=== PATIENT | female | born 1990 | race Caucasian/White ===

== ENCOUNTER → 2016-09-08 | Outpatient (REF) | payer OTHER ==
[~2016-09-08] MED LIST: ABIL2TAB OR; DEPA250T3 OR; TRAZ50TA OR; ZOLO50TA OR
== END | disposition home or self-care (01) ==
LOC: M SFHCWAGY 15:22
PROVIDERS: ATTEND Nurse Practitioner Family
DX: Z12.4 Encounter for screening for malignant neoplasm of cervix (principal); Z11.3 Encounter for screening for infections with a predominantly sexual mode of transmission
CPT/HCPCS: 87491; 87591; G0123

== ENCOUNTER 2016-12-13 16:23 | Inpatient (IN) | payer OTHER ==
[~2016-12-13] VITALS: Ht 162.6 cm; Wt 57.7 kg
[2016-12-13 17:24] LABS: MEAN CORPUSCULAR HEMOGLOBIN 29.6 pg (27.0-33.0); MEAN CORPUSCULAR HGB CONC 34.5 g/dl (32.0-36.5); MEAN CORPUSCULAR VOLUME 85.8 fl (80.0-96.0); RED CELL DISTRIBUTION WIDTH 11.9 % (11.5-14.5); WHITE BLOOD COUNT 5.5 K/mm3 (4.0-10.0)
[2016-12-13 17:38] LABS: CONTROL LINE HCG INT CTR LINE PRESENT
[2016-12-13 17:53] LABS: ALBUMIN/GLOBULIN RATIO 1.25 (1.00-1.93); ALKALINE PHOSPHATASE 77 U/L (45-117); ALT/SGPT 23 U/L (12-78); ANION GAP 6 MEQ/L (8-16); AST/SGOT 17 U/L (15-37); BILIRUBIN,DIRECT 0.2 MG/DL (0.0-0.2); BILIRUBIN,TOTAL 0.5 MG/DL (0.2-1.0); BLOOD UREA NITROGEN 11 MG/DL (7-18); CALCIUM LEVEL 8.9 MG/DL (8.5-10.1); CARBON DIOXIDE LEVEL 29 MEQ/L (21-32); CHLORIDE LEVEL 104 MEQ/L (98-107); CREATININE FOR GFR 0.85 MG/DL (0.55-1.02); GLOMERULAR FILTRATION RATE > 60.0 (>60); GLUCOSE, FASTING 92 MG/DL (70-105); POTASSIUM SERUM 4.1 MEQ/L (3.5-5.1); SODIUM LEVEL 139 MEQ/L (136-145); TOTAL PROTEIN 7.2 GM/DL (6.4-8.2)
[2016-12-13 18:10] LABS: METHADONE URINE NEGATIVE (NEGATIVE)
[2016-12-13] MEDS ORDERED: MAALOX 30 ML SUSP *UDC PO PRN (19:00)
[2016-12-13] MEDS ORDERED: MOM 30ML SUSPENSION UDC PO PRN (19:00)
[2016-12-13] MEDS ORDERED: NICOTINE 21MG/24HR 1 EA TRANSDERMAL TD ONE (20:00)
[2016-12-13 21:15] VITALS: BP 116/77
[2016-12-13] MEDS: cloNIDine 0.05MG PER 1/2 TABLET PO SCH (22:49)
[2016-12-13] MEDS: ACETAMINOPHEN TAB 650MG DOSE (2X325MG) PO PRN (22:51)
[2016-12-14] MEDS: traZODone 50 MG TAB PO PRN (00:03)
[2016-12-14 06:24] VITALS: BP 100/54
[2016-12-14] MEDS: ACETAMINOPHEN TAB 650MG DOSE (2X325MG) PO PRN ×2 (08:35→20:15)
[2016-12-14] MEDS: cloNIDine 0.05MG PER 1/2 TABLET PO SCH ×4 (09:00→20:14)
[2016-12-14] MEDS: chlordiazePOXIDE 25 MG CAP PO SCH ×3 (10:06→20:15)
--- NOTE | 2016-12-14 10:08 | HPEPDOC ---
[facility] History & Physical History and Physical DATE OF ADMISSION: Dec 13, 2016 at 18:33 LEGAL STATUS AT ADMISSION: 9.39 status CHIEF COMPLAINT: "I lied to the police. I lied to everyone. I want to be discharged. Is there anyway I can leave tomorrow. My mother needs me". HISTORY OF THE PRESENT ILLNESS: Patient is a 25-year-old female, who is being treated for opiate withdrawal and substance induced mood disorder. PSYCHIATRIC REVIEW OF SYSTEMS: Affective: irritable, sleepy Anxiety: high Trauma: denies Psychosis: denies Personally: easily redirected PAST PSYCHIATRIC HISTORY: Prior Psychiatric Disorder: opiate dependence, substance induced mood disorder Outpatient Treatment: pt has been to detox twice in [place] and rehab at [facility] in 2010, remained sober/clean for 2 years Suicidal/Self injurious: has cut and burned herself in the past, last at age 14. Psychotropic Medication History: zoloft 50 mg according to her chart by Dr. Kennedy. ALLERGIES: Please see below. FAMILY PSYCHIATRIC HISTORY: Mother used crack cocaine, may have mental illness but unknown SOCIAL HISTORY: Early Relations/development: raised by father, mother was a drug addict Sibling order: only child Paternal relationships: lives with mother, claims good relationship with both parents, parents when she was 3 yo. Education: HS graduate, earned Advanced regents diploma at [employer]. Average grades - in the 80 percentile. 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 Legal: denies Martial: single, in a relationship x 4 years with same man Economic: depends on mother or Boyfriend Supports: boyfriend Abuse/trauma: denies SUBSTANCE ABUSE HISTORY: Yolis began using marijuana at age 17. She moved on to LSD, crack cocaine and snorting heroine. She has currently been injecting heroine using 6 bags a day. She states she last used 1.5 days ago. She has detoxed herself in the past by using Suboxone she obtained from a friend. PAST MEDICAL/SURGICAL HISTORY: 1. vaginal infections 2. diabetes? 3. h/o elevated BP-HTN 4. nicotine dependence VITAL SIGNS: Temperature 98.7, pulse 70 respiratory rate 16, blood pressure 100/ 54. MENTAL STATUS EXAMINATION: General appearance: Patient is a 25-year old female, who is on withdrawal precautions due to opiate dependence. In bed, disshelved. Speech: regular rate, rhythm, good tone Thought processes: logical and goal directed Thought content:wants to be discharged after learning she is not able to get suboxone or methadone here. Abstract reasoning and computation: good Description of associations: good Description of abnormal or psychotic thoughts: denies psychotic symptoms, not manic or hypomanic, denies SI Judgment:poor Insight: good Orientation: oriented x 3 Recent and remote memory: grossly intact Attention span and concentration: adequate. Fund of knowledge: full Mood: "anxious" Affect:irritable, tearful. DIAGNOSES: 1. Sedative, hypnotic, opiate dependence 2. Mood disorder - substance induced 3. Depressive disorder 4. ADD 5. Panic disorder ASSESSMENT: Pt is in need of safe environment with supervision. Pt needs monitoring for opiate withdrawal and medications to support safe withdrawal. Pt is agreeable to outpatient substance abuse treatment. She says her boyfriend does not like her using heroine. She says he works as a milk delivery driver and all of his sisters have college degrees. This makes her feel inferior. She would like to get a job while in outpatient treatment. She states she attended 12 step meetings in the past and worked with a sponsor. She states she was stressing about getting a job and self-esteem was low and this caused her to relapse. 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 Pt states she has dyslexia along with ADD. She states her parents did not belive in [facility] when she was dx in grade school. She says she was held back in the second grade. She states she was teased and called "a ditz" while growing up. Pt reports time management, excessive tardiness and inability to reach deadlines have caused her to be fired from numerous jobs. She may be a candidate for [facility] if she follows through with outpatient treatment. Pt reports feeling panicked when in crowds. She experiences SOB and elevated heart rate. Her last panic attack was 6 weeks ago. Toxicology + for opiates. Liver enzymes wnl. Bilirubin trending up since admission. States she has been screened for Hep C in the past and is negative. New specimen obtained today. Also test pending for HIV. Hates blood draws. Protocol in place for withdrawal from opiates. Using Librium 25 mg, 3 doses today, 2 tomorrow and 1 the following day. She is cooperative to VS. CXR done this morning - awaiting results. EKG results pending Pt states her mother was recently treated for breast cancer. She required surgery and chemo. States her mother wants her and needs her at home. Case discussed with sr. merchandise planner who will speak with pt and investigate [facility] addiction services as an outpatient program for Ms. Felix. Since she would like suboxone she will be referred to Dr. Carl. Will start celexa for depression. PROBLEM LIST: 1. substance abuse 2. poor coping skills 3. lack of emotional support INITIAL TREATMENT PLAN: 1. Patient was admitted on a 9.39 2. Complete history was obtained. 3. With patients permission, family will be contacted and database will be expanded. 4. Patients medication regimen will be reviewed and changed accordingly. 5. Patient will be provided with protected environment. 6. Patient will be treated with individual, group, and milieu therapies. 7. Patient will receive supportive psych-education. 8. Discharge planning will commence immediately. 9. Outpatient follow-up treatment will be strongly recommended. 10. The initial treatment plan will focus initially on: * Depression. * Risk for suicide. * Substance abuse. ESTIMATED LENGTH OF STAY: 5-7 DAYS. TIME SPENT COUNSELING AND COORDINATING INITIAL CARE: 60 minutes. Laboratory Data 24H Labs Laboratory Tests 2 12/13/16 17:05: Acetaminophen Level < 2.0L, Aspartate Amino Transf (AST/SGOT) 17, Alanine Aminotransferase (ALT/SGPT) 23, Alkaline Phosphatase 77, Total Bilirubin 0.5, Direct Bilirubin 0.2, Albumin 4.0, Albumin/Globulin Ratio 1.25, Anion Gap 6L, Calcium Level 8.9, Ethyl Alcohol Level < 0.003, Glomerular Filtration Rate > 60.0, Human Chorionic Gonadotropin, Qual NEGATIVE, Salicylates Level < 1.7L, Thyroid Stimulating Hormone (TSH) 1.400, Total Protein 7.2 CBC/BMP Laboratory Tests 12/13/16 17:05 Red Blood Count 4.65, Mean Corpuscular Volume 85.8, Mean Corpuscular Hemoglobin 29.6, Mean Corpuscular Hemoglobin Concent 34.5, Red Cell Distribution Width 11.9 Medications No Active Prescriptions or Reported Meds Allergies Coded Allergies: No Known Drug Allergy (Unverified Allergy, Unknown, 11/29/12) Tita Esparza Dec 14, 2016 10:08
--- NOTE | 2016-12-14 10:15 | HPEPDOC ---
Medical History and Physical Date of Admission Dec 13, 2016 at 18:33 History and Physical PCP: None ATTENDING: Dr. Robby Anthony HPI: 25yoF admitted to [facility] for depression, being medically examined today. Patient is reluctant to participate with exam, states she has no acute medical complaints today. She is wrapped in a blanket as she is experiencing withdrawal symptoms. She is experiencing some chills, fatigue, generalized malaise. Nursing reports fever of 101.3, the patient received Tylenol with a recheck of 100.0. Denies any RO, CP, SOB, cough, palpitations, abdominal pain, N/V/D or changes in bowel or bladder habits. PMHx: Substance use Tobacco use Anxiety Depression Insomnia H/O self mutilation PSHX: Denies SOCHX: Resides in: [facility] Marital Status: Single Kids: None Employment: Unemployed Tobacco use: One pack per day ETOH: Denies Illicit Drugs: 6 bags of heroin per day IV Drug Use: Heroin Tattoos done unprofessionally: Denies FAMHX: Mother: Alive, history of breast cancer Father: Alive, well Siblings: None Children: None Unexpected deaths due to medical reasons: None. ROS: As noted in HPI, otherwise 11pt ROS of systems reviewed and remarkable only for LMP unknown. PE: GEN: 25 yo F, appears stated age. Alert and oriented x 3. Avoids eye contact. Lethargic. HEENT: Normocephalic, atraumatic. Pupils are equal, round, and reactive to light. Extraocular movements are intact. No nystagmus appreciated. Sclera are nonicteric. Conjunctiva without injection. Nose midline. Nasal turbinates without bogginess. EACs both patent BL. TMs both visualized and cochran with good cone of light, no bulging or erythema. No facial asymmetry. Moist mucous membranes. Dentition fair. Pharynx pink and moist, no cobblestoning. Neck supple , trachea midline. No lymphadenopathy or thyromegaly appreciated. CHEST: Regular rate and rhythm, +S1, +S2 LUNGS: Clear to auscultation bilaterally. No wheezes, rales, or rhonchi. Breathing appears symmetric and easy. Patient is speaking in full sentences. No accessory muscle use. ABD: Round, soft, non-tender, non-distended. +Bowel sounds throughout. No rebound or guarding. No costovertebral angle tenderness. EXT: Pulses 2+ bilaterally dorsalis pedis and radial. No lower extremity edema appreciated. SKIN: [place], dry, warm. Capillary refill <2sec. Multiple injection sites are noted at the right forearm and antecubital area. NEURO: Alert and oriented x 3. Cranial nerves III-XII are intact. No focal deficits appreciated. EKG: Pending. A&P: 25yoF admitted to [facility] for depression 1. Psych. Plan per Psychiatry. Obtain baseline EKG to assure the safety of psychiatric medications as they can prolong the QT interval. 2. Nicotine dependence. Patch available. 3. Fever. Continue Tylenol 650 mg every 4 hours as needed. Update CBC with differential/CMP. Check UA/urine culture. Blood Culture 2. Chest x-ray. 4. Follow up. No Primary Care Provider. Will attempt to establish PCP on discharge. 5. Substance use. Withdrawal per psychiatry. 6. History of IVDU. Patient agrees to HIV and hepatitis screening. 7. Staff member Katarina OSWALD present throughout exam. Vital Signs Vital Signs Date Time Temp Pulse Resp B/P Pulse Ox O2 Delivery O2 Flow Rate FiO2 12/14/16 09:00 103/55 12/14/16 06:24 98.7 70 16 12/13/16 21:15 100 Room Air Laboratory Data Labs 24H Laboratory Tests 2 12/13/16 17:05: Acetaminophen Level < 2.0L, Aspartate Amino Transf (AST/SGOT) 17, Alanine Aminotransferase (ALT/SGPT) 23, Alkaline Phosphatase 77, Total Bilirubin 0.5, Direct Bilirubin 0.2, Albumin 4.0, Albumin/Globulin Ratio 1.25, Anion Gap 6L, Calcium Level 8.9, Ethyl Alcohol Level < 0.003, Glomerular Filtration Rate > 60.0, Human Chorionic Gonadotropin, Qual NEGATIVE, Salicylates Level < 1.7L, Thyroid Stimulating Hormone (TSH) 1.400, Total Protein 7.2 CBC/BMP Laboratory Tests 12/13/16 17:05 Red Blood Count 4.65, Mean Corpuscular Volume 85.8, Mean Corpuscular Hemoglobin 29.6, Mean Corpuscular Hemoglobin Concent 34.5, Red Cell Distribution Width 11.9 Home Medications No Active Prescriptions or Reported Meds Allergies Coded Allergies: No Known Drug Allergy (Unverified Allergy, Unknown, 11/29/12) Marline Gamble Dec 14, 2016 10:15
--- NOTE | 2016-12-14 11:19 | REP ---
Chest x-ray: Two views. History: Fever. Comparison study: No comparison . Findings: The lungs are well inflated and free of infiltrate. The pleural angles are sharp. The heart size is normal. Pulmonary vasculature is not increased. No significant bony abnormality is seen. Impression: Negative chest x-ray. Signed by Heladio Fernandes MD 12/14/2016 11:11 A
[2016-12-14 12:59] LABS: BASO % 0.5 % (0.0-1.0); EOS % 0.6 % (0.0-3.0); LARGE UNSTAINED CELL # 0.1 K/mm3 (0.0-0.4); LARGE UNSTAINED CELL % 2.1 % (0.0-4.0); LYMPH % 20.6 % (24.0-44.0); MEAN CORPUSCULAR HEMOGLOBIN 29.3 pg (27.0-33.0); MEAN CORPUSCULAR HGB CONC 34.1 g/dl (32.0-36.5); MEAN CORPUSCULAR VOLUME 85.8 fl (80.0-96.0); MONO # 0.2 K/mm3 (0.0-0.8); MONO % 3.2 % (0.0-5.0); NEUTROPHILS # 3.6 K/mm3 (1.8-7.7); PLATELET COUNT, AUTOMATED 342 k/mm3 (150-450); RED CELL DISTRIBUTION WIDTH 11.8 % (11.5-14.5)
[2016-12-14 13:05] LABS: ALBUMIN 4.1 GM/DL (3.2-5.2); ALBUMIN/GLOBULIN RATIO 1.24 (1.00-1.93); ALKALINE PHOSPHATASE 69 U/L (45-117); ALT/SGPT 20 U/L (12-78); ANION GAP 9 MEQ/L (8-16); AST/SGOT 17 U/L (15-37); BILIRUBIN,TOTAL 0.9 MG/DL (0.2-1.0); BLOOD UREA NITROGEN 11 MG/DL (7-18); CALCIUM LEVEL 9.2 MG/DL (8.5-10.1); CARBON DIOXIDE LEVEL 26 MEQ/L (21-32); CHLORIDE LEVEL 106 MEQ/L (98-107); CREATININE FOR GFR 0.78 MG/DL (0.55-1.02); GLOMERULAR FILTRATION RATE > 60.0 (>60); GLUCOSE, FASTING 99 MG/DL (70-105); POTASSIUM SERUM 3.9 MEQ/L (3.5-5.1); SODIUM LEVEL 141 MEQ/L (136-145); TOTAL PROTEIN 7.4 GM/DL (6.4-8.2)
[2016-12-14] MEDS: CitaloPRAM (CeleXA) 20 MG TAB PO SCH (16:34)
[2016-12-14 18:00] VITALS: BP 103/55
--- NOTE | 2016-12-14 18:46 | ECGEPIP ---
Stationary ECG Study [facility] Test Date: 2016-12-14 Pat Name: AMANDA FITCH Department: Room: [place] [address] Gender: F Repairer General: : 1990 Requested By: Marline Gamble Order Number: [id number] Reading MD: Robby Anthony Measurements Intervals [place] Rate: 79 P: 59 CO: 111 QRS: 57 QRSD: 83 T: 52 QT: 363 QTc: 417 Interpretive Statements SINUS RHYTHM WITH SINUS ARRHYTHMIA WITH SHORT CO INTERVAL Comparison tracing not on file Electronically Signed On 12-14-2016 18:45:59 EDT by Robby Anthony
[2016-12-14] MEDS: ONDANSETRON 4 MG TAB (S0181) PO PRN (20:15)
[2016-12-14 21:18] VITALS: BP 119/73
[2016-12-15] MEDS: traZODone 50 MG TAB PO PRN (00:42)
[2016-12-15] MEDS: ONDANSETRON 4 MG TAB (S0181) PO PRN ×3 (06:08→21:09)
[2016-12-15 06:40] VITALS: BP_SYST 128; BP_SYST 130; BP_DIAS 66; BP_DIAS 86
[2016-12-15] MEDS: cloNIDine 0.05MG PER 1/2 TABLET PO SCH ×3 (08:41→23:11)
[2016-12-15] MEDS: CitaloPRAM (CeleXA) 20 MG TAB PO SCH (08:42)
[2016-12-15] MEDS: chlordiazePOXIDE 25 MG CAP PO SCH ×2 (08:42→23:11)
[2016-12-15 10:00] VITALS: BP 97/56
--- NOTE | 2016-12-15 13:10 | IPNPDOC ---
[facility] Progress Note Progress Note DATE OF SERVICE: 12/15/16 HISTORY: Day 3 of admission VITAL SIGNS: See below. NEW TEST RESULTS: EKG: SINUS RHYTHM WITH SINUS ARRHYTHMIA WITH SHORT SC INTERVAL. CXR:Findings: The lungs are well inflated and free of infiltrate. The pleural angles are sharp. The heart size is normal. Pulmonary vasculature is not increased. No significant bony abnormality is seen. Impression: Negative chest x-ray. CURRENT MEDICATIONS: See below. MENTAL STATUS EXAMINATION: Patient is a 25-year old female, who is dx with Opiate dependence, depressive disorder. Speech: Is clear, spontaneous Language skills are good. Thought processes : logical Thought content: asking for suboxone or methadone, asking for discharge Abstract reasoning, and computation: fair Description of associations: good. Description of abnormal or psychotic thoughts: non illicited, no hallucinations , denies SI. Judgment: poor Insight: poor. Orientation: well oriented in all spheres. Recent and remote memory: intact Attention span and concentration: adequate. Fund of knowledge: Full Mood: . Affect: DIAGNOSES: 1. sedative, hypnotic, opiate dependence 2. Panic disorder 3. ADD by history 4. depressive disorder ASSESSMENT:Pt has been in bed during each visit to her room by this business writer. She appears to be sleeping. Her withdrawal from heroine is progressing safely though she would prefer to be given methadone or suboxone. She met with the Business Writer and did agree to an appt with Dr. Carl for suboxone treatment. Her committment to sobriety is questionable but she has received our encouragement to persevere with this. She is intelligent and young and could turn her life around if she stopped her drug seeking behaviors. Pt has rested well on the unit. She is whiney when she states her needs. She observed on the phone for 30 mins at a time. Last evening she had emesis while on the phone and did not show good judgment in handling this. She is quite immature for this stage in her life. She keeps insisting her mother needs her at home but she does not say why. She is aware her mother can visit her. Vomiting remains a problem for her today. [place] at bedside. Pt has not been a behavior problem on the unit. She is cooperative with protocols and routines. She is still seeking either methadone or suboxone. She realizes she should have gone to detox instead of reporting she was suicidal and coming here. She continues to say she was not suicidal upon admission. She denies SI or HI today. MANAGEMENT PLAN: Continue withdrawal protocol. She will receive 2 doses of librium 25 mg today. One dose tomorrow. We will see about discharge on Sunday if outpatient appts have been made and pt is fit to leave. This convention planner intends to make outpatient appointments for Ms. Felix with Dr. Carl for suboxone treatment and with [facility] for psychiatric care. She will meet with the pts mother over the weekend to discuss and coordinate pts needs upon discharge. TIME SPENT: 20 minutes. Vital Signs Vital Signs Date Time Temp Pulse Resp B/P Pulse Ox O2 Delivery O2 Flow Rate FiO2 12/15/16 10:00 82 16 97/56 12/15/16 06:00 99.3 12/13/16 21:15 100 Room Air Current Medications Current Medications Acetaminophen (Tylenol Tab) 650 mg Q4HP PRN PO PAIN OR FEVER Last administered on 12/14/16 20:15; Start 12/14/16 at 19:45; Stop 01/13/17 at 19:44 Acetaminophen (Tylenol Tab) 650 mg Q6HP PRN PO HEADACHE or DISCOMFORT Last administered on 12/14/16 08:35; Start 12/13/16 at 19:00; Stop 12/14/16 at 19:43 ; Status DC Al Hydrox/Mg Hydrox/Simethicone (Mylanta) 30 ml Q4HP PRN PO HEARTBURN/ INDIGESTION; Start 12/13/16 at 19:00; Stop 01/12/17 at 18:59 Chlordiazepoxide (Librium) 25 mg BID PO Last administered on 12/15/16 08:42; Start 12/15/16 at 09:00; Stop 12/16/16 at 08:59 Chlordiazepoxide (Librium) 25 mg QHS PO ; Start 12/16/16 at 21:00; Stop at 20:59 Chlordiazepoxide (Librium) 25 mg TID PO Last administered on 12/14/16 20:15; Start 12/14/16 at 09:00; Stop 12/15/16 at 08:59; Status DC Citalopram Hydrobromide (CeleXA) 20 mg DAILY PO Last administered on 12/15/16 08:42; Start 12/14/16 at 09:00; Stop 01/13/17 at 08:59 Clonidine HCl (Catapres) 0.05 mg TID PO Last administered on 12/14/16 20:14; Start 12/13/16 at 21:00; Stop 01/12/17 at 20:59 Home Med (Med Rec Complete!) ASDIRECTED XX ; Start 12/13/16 at 19:00; Stop at 19:00; Status DC Magnesium Hydroxide (Milk Of Magnesia) 30 ml DAILYPRN PRN PO CONSTIPATION; Start 12/13/16 at 19:00; Stop 01/12/17 at 18:59 Ondansetron HCl (Zofran) 4 mg Q4HP PRN PO NAUSEA OR VOMITING Last administered on 12/15/16 06:08; Start 12/14/16 at 19:45; Stop 01/13/17 at 19:44 Trazodone HCl (Desyrel) 50 mg QHSP PRN PO INSOMNIA Last administered on 00:42; Start 12/13/16 at 19:00; Stop 01/12/17 at 18:59 Allergies Coded Allergies: No Known Drug Allergy (Unverified Allergy, Unknown, 11/29/12) Tita Esparza Dec 15, 2016 13:10
[2016-12-15 14:00] VITALS: BP 113/67
[2016-12-15] MEDS: ACETAMINOPHEN TAB 650MG DOSE (2X325MG) PO PRN (15:55)
[2016-12-15 18:00] VITALS: BP 104/56
[2016-12-15] MEDS: traZODone 100 MG TAB PO PRN (23:11)
[2016-12-16 06:18] VITALS: BP 103/62
[2016-12-16 10:01] VITALS: BP 110/60
[2016-12-16] MEDS: CitaloPRAM (CeleXA) 20 MG TAB PO SCH (10:03)
[2016-12-16] MEDS: cloNIDine 0.05MG PER 1/2 TABLET PO SCH ×3 (10:03→23:57)
[2016-12-16] MEDS: ONDANSETRON 4 MG TAB (S0181) PO PRN (10:06)
[2016-12-16 12:00] VITALS: BP 101/69
--- NOTE | 2016-12-16 14:49 | IPNPDOC ---
[facility] Progress Note Progress Note DATE OF SERVICE: 12/16/16 HISTORY: 19-year-old female with history of opioid dependence and substance- induced depression. Patient currently lives with her mother but she used to live with her father because her mother wasn't not able to care for her appropriately, since she was a drug addict. The patient has had a relationship for 4 years, states that enrolled in school and that she was charged with $6000 for 1 week. She claims that they got confused in school and they were charging her as an international student. She says that she has being in detox programs before that she was able to be clear from drugs for 2 years, and that she became very depressed after her pet was killed by a snow plow in June 2015. She says that she is very spiritual and she is working really hard to become a psychic, and so, she considers her altered perceptions are not secondary to a psychiatric problem or to her substance abuse. She believes that they are not hallucinations. VITAL SIGNS: See below. NEW TEST RESULTS: None. CURRENT MEDICATIONS: See below. MENTAL STATUS EXAMINATION: Patient is a 25-year old female, who is alert, cooperative with interview sleepy , with poor hygiene Speech: slow. Not tangential and not circumstantial Language skills are fair. Thought processes including: Linear. Thought content: Negative for active suicidal thoughts, negative for homicidal thoughts and although she denies auditory or visual hallucinations, she is most likely responding to internal stimuli. Abstract reasoning, and computation: Poor. Description of associations: No loosening of associations Description of abnormal or psychotic thoughts: She denies to have auditory or visual hallucinations as well as perceptual disturbances, but she has been seen absent-minded, staring to the horowitz and the ceiling, as if she is responding to internal stimuli. Judgment: Poor. Insight: Poor. Orientation: Oriented to place and person but not to time. Recent and remote memory: Waxes and wanes. Attention span and concentration: Poor. Language: Fair. Fund of knowledge: Fair. Mood: "I feel better because I was able to sleep last night.I'm depressed". Affect: Restricted DIAGNOSES: 1. Opioid dependence. 2. Substance induced depression. 3. R/O substance induced psychosis ASSESSMENT:The patient seems absent, disconnected from her surroundings. Her insight and judgement are still very poor. She's depressed and probably psychotic. Not aggressive but she's not able take care of herself. needs more time at the [facility] to get stabilized with medications and psychotherapy. MANAGEMENT PLAN: Continue hospitalization, make arrangements for proper follow up as an outpatient. TIME SPENT: 25 minutes. Vital Signs Vital Signs Date Time Temp Pulse Resp B/P Pulse Ox O2 Delivery O2 Flow Rate FiO2 12/16/16 12:00 99.7 104 16 101/69 12/13/16 21:15 100 Room Air Current Medications Current Medications Acetaminophen (Tylenol Tab) 650 mg Q4HP PRN PO PAIN OR FEVER Last administered on 12/15/16 15:55; Start 12/14/16 at 19:45; Stop 01/13/17 at 19:44 Acetaminophen (Tylenol Tab) 650 mg Q6HP PRN PO HEADACHE or DISCOMFORT Last administered on 12/14/16 08:35; Start 12/13/16 at 19:00; Stop 12/14/16 at 19:43 ; Status DC Al Hydrox/Mg Hydrox/Simethicone (Mylanta) 30 ml Q4HP PRN PO HEARTBURN/ INDIGESTION; Start 12/13/16 at 19:00; Stop 01/12/17 at 18:59 Chlordiazepoxide (Librium) 25 mg BID PO Last administered on 12/15/16 23:11; Start 12/15/16 at 09:00; Stop 12/16/16 at 08:59; Status DC Chlordiazepoxide (Librium) 25 mg QHS PO ; Start 12/16/16 at 21:00; Stop at 23:59 Chlordiazepoxide (Librium) 25 mg TID PO Last administered on 12/14/16 20:15; Start 12/14/16 at 09:00; Stop 12/15/16 at 08:59; Status DC Citalopram Hydrobromide (CeleXA) 20 mg DAILY PO Last administered on 12/16/16 10:03; Start 12/14/16 at 09:00; Stop 01/13/17 at 08:59 Clonidine HCl (Catapres) 0.05 mg TID PO Last administered on 12/16/16 10:03; Start 12/13/16 at 21:00; Stop 01/12/17 at 20:59 Home Med (Med Rec Complete!) ASDIRECTED XX ; Start 12/13/16 at 19:00; Stop at 19:00; Status DC Magnesium Hydroxide (Milk Of Magnesia) 30 ml DAILYPRN PRN PO CONSTIPATION; Start 12/13/16 at 19:00; Stop 01/12/17 at 18:59 Ondansetron HCl (Zofran) 4 mg Q4HP PRN PO NAUSEA OR VOMITING Last administered on 12/16/16 10:06; Start 12/14/16 at 19:45; Stop 01/13/17 at 19:44 Trazodone HCl (Desyrel) 50 mg QHSP PRN PO INSOMNIA Last administered on 00:42; Start 12/13/16 at 19:00; Stop 12/15/16 at 21:09; Status DC Trazodone HCl (Desyrel) 100 mg QHSP PRN PO INSOMNIA Last administered on 23:11; Start 12/15/16 at 21:15; Stop 01/14/17 at 21:14 Allergies Coded Allergies: No Known Drug Allergy (Unverified Allergy, Unknown, 11/29/12) NORMA CLEMENTE MD Dec 16, 2016 14:49
[2016-12-16 18:00] VITALS: BP 115/64
[2016-12-16] MEDS ORDERED: chlordiazePOXIDE 25 MG CAP PO SCH (21:00)
[2016-12-16] MEDS: NICOTINE 21MG/24HR 1 EA TRANSDERMAL TD SCH (22:50)
[2016-12-16] MEDS: traZODone 100 MG TAB PO PRN (23:57)
[2016-12-17 06:27] VITALS: BP 117/75
[2016-12-17] MEDS: NICOTINE 21MG/24HR 1 EA TRANSDERMAL TD SCH ×2 (09:00→09:59)
[2016-12-17] MEDS: ONDANSETRON 4 MG TAB (S0181) PO PRN (09:09)
[2016-12-17] MEDS: cloNIDine 0.05MG PER 1/2 TABLET PO SCH ×3 (09:59→23:24)
[2016-12-17] MEDS: CitaloPRAM (CeleXA) 20 MG TAB PO SCH (09:59)
--- NOTE | 2016-12-17 10:58 | IPNPDOC ---
[facility] Progress Note Progress Note DATE OF SERVICE: 12/17/16 HISTORY: Re assessed 19 year old female with history of Opioid dependance and Major depressive disorder who was admitted for suicidal ideation. She was cooperative with interview, her eye contact is poor, seems distracted, disconnected from her surroundings at times, has depressed mood and blunted affect. Denies suicidal ideation or homicidal ideation, but she has low energy levels, anhedonia, low interest, poor attention and concentration, feelings of worthlessness and helplessness. Her judgement is poor and has little insight into her situation. She will need more time at the Inpatient mental health Unit and attend groups and continue to receive medications to help her gain insight of her problem. Family relations will need to be assessed, mother doesn' t seem to be the best person to live with her, because mother has a history of addiction. She will continue on her medications. Needs to attend groups. TIME SPENT: 15 minutes. Vital Signs Vital Signs Date Time Temp Pulse Resp B/P Pulse Ox O2 Delivery O2 Flow Rate FiO2 12/17/16 09:59 108/60 12/17/16 06:27 99.1 99 18 12/13/16 21:15 100 Room Air Current Medications Current Medications Acetaminophen (Tylenol Tab) 650 mg Q4HP PRN PO PAIN OR FEVER Last administered on 12/15/16 15:55; Start 12/14/16 at 19:45; Stop 01/13/17 at 19:44 Acetaminophen (Tylenol Tab) 650 mg Q6HP PRN PO HEADACHE or DISCOMFORT Last administered on 12/14/16 08:35; Start 12/13/16 at 19:00; Stop 12/14/16 at 19:43 ; Status DC Al Hydrox/Mg Hydrox/Simethicone (Mylanta) 30 ml Q4HP PRN PO HEARTBURN/ INDIGESTION; Start 12/13/16 at 19:00; Stop 01/12/17 at 18:59 Chlordiazepoxide (Librium) 25 mg BID PO Last administered on 12/15/16 23:11; Start 12/15/16 at 09:00; Stop 12/16/16 at 08:59; Status DC Chlordiazepoxide (Librium) 25 mg QHS PO Last administered on 12/16/16 23:57; Start 12/16/16 at 21:00; Stop 12/16/16 at 23:59; Status DC Chlordiazepoxide (Librium) 25 mg TID PO Last administered on 12/14/16 20:15; Start 12/14/16 at 09:00; Stop 12/15/16 at 08:59; Status DC Citalopram Hydrobromide (CeleXA) 20 mg DAILY PO Last administered on 12/17/16 09:59; Start 12/14/16 at 09:00; Stop 01/13/17 at 08:59 Clonidine HCl (Catapres) 0.05 mg TID PO Last administered on 12/17/16 09:59; Start 12/13/16 at 21:00; Stop 01/12/17 at 20:59 Home Med (Med Rec Complete!) ASDIRECTED XX ; Start 12/13/16 at 19:00; Stop at 19:00; Status DC Magnesium Hydroxide (Milk Of Magnesia) 30 ml DAILYPRN PRN PO CONSTIPATION; Start 12/13/16 at 19:00; Stop 01/12/17 at 18:59 Nicotine (Nicoderm Cq 21mg) 1 patch DAILY TD Last administered on 12/16/16 22: 50; Start 12/16/16 at 22:00; Stop 01/15/17 at 21:59 Ondansetron HCl (Zofran) 4 mg Q4HP PRN PO NAUSEA OR VOMITING Last administered on 12/17/16 09:09; Start 12/14/16 at 19:45; Stop 01/13/17 at 19:44 Trazodone HCl (Desyrel) 50 mg QHSP PRN PO INSOMNIA Last administered on 00:42; Start 12/13/16 at 19:00; Stop 12/15/16 at 21:09; Status DC Trazodone HCl (Desyrel) 100 mg QHSP PRN PO INSOMNIA Last administered on 23:57; Start 12/15/16 at 21:15; Stop 01/14/17 at 21:14 Allergies Coded Allergies: No Known Drug Allergy (Unverified Allergy, Unknown, 11/29/12) NORMA CLEMENTE MD Dec 17, 2016 10:58
[2016-12-17 11:43] VITALS: BP 102/58
[2016-12-17 18:00] VITALS: BP 106/62
[2016-12-17] MEDS: traZODone 100 MG TAB PO PRN (23:26)
[2016-12-18 06:40] VITALS: BP 82/58
[2016-12-18] MEDS: CitaloPRAM (CeleXA) 20 MG TAB PO SCH (08:37)
[2016-12-18] MEDS: ONDANSETRON 4 MG TAB (S0181) PO PRN (08:37)
[2016-12-18] MEDS: cloNIDine 0.05MG PER 1/2 TABLET PO SCH ×2 (08:38→15:00)
[2016-12-18] MEDS ORDERED: TRAZ100T4 PO (09:49)
[2016-12-18] MEDS ORDERED: CITA20TA4 PO (09:51)
--- NOTE | 2016-12-18 10:10 | DS.PDOC ---
[facility] Discharge Summary Discharge Summary DATE OF ADMISSION: Dec 13, 2016 at 18:33 DATE OF DISCHARGE: Dec 18, 2016 DISCHARGE DIAGNOSES: 1. Sedative, hypnotic, opiate dependence 2. depression 3. ADD by history. REASON FOR ADMISSION:suicidal ideation CONSULTANTS INVOLVED:EKG, medical, psychiatry TREATMENT AND PROGRESS ON THE UNIT : Pt experienced opiate withdrawal while on the unit. Treated with Librium which was not her first choice but she was adherent to the treatment regime. Her nausea and vomiting has subsided. She is awake and alert and smiling. She states she is motivated for substance abuse treatment with suboxone and anticipates being successful since she was 2 years clean before on suboxone but relasped after her [facility] fer[facility] was [facility]. This was a painful loss for her. Long Chain Beamer read notes by Dr. Tenorio and discussed concerns regarding psychosis with both Dr. Tenorio and the Pt. Pt reports she sees aura's surrounding people and energy taylor. She has seen orbs which she describes as spirts. She states she has had this capacity for some time and has explored her psychic ability and wants to became a psychic. She denies hearing voices. She denies any suggestions internally that she should harm herself or others in any way. She denies fear related to these visions of energy and in fact feels quite comfortable with them. She denies that she is having psychosis or is feeling psychotic. She feels very much in control of what she thinks, says or does. She does not feel that she is under the control of some other entity. Pt did states she believes drug addiction is demonic and when she uses heroine she feels surrounded by black, dark energy. HOSPITAL COURSE: Pt completed withdrawal. She spent most of her time in bed and alone. She took meds that were made available to her including Celexa 20 mg for depression and trazodone for sleep. She agrees to continue these medications upon discharge. It was explained to her that her [id number] may may require an increase in 4-6 weeks if depression is not resolved by then. She was advised to discuss this with her outpatient provider. DISCHARGE ASSESSMENT: Pt will be discharged with a 7 day supply of celexa 20 mg and trazodone 100 mg. She is provided 6 refills in case her med mgt appt is beyond 30 days from discharge. We don't want her to run out of celexa and have to stop it abruptly. She understands she will need to refill her meds weekly. Pt has decided not to attend [facility] but would like to be referred to [facility]. This will be arranged by her presenting there as a walk in at her earliest convenience. She will be returning to her mothers home which is where she wants to be. She says her mother is clean now as she is recovering from cancer treatment/surgery. MENTAL STATUS EXAMINATION ON DISCHARGE: Patient is a 25-year old female, who is dx with opiate dependence and depressed mood. She is disheveled, sitting up in bed in her room. Eye contact is good. Speech is clear, fluent Language skills are intact Thought processes : linear, goal directed Thought content: appropriate Abstract reasoning, and computation: good Description of associations: good Description of abnormal or psychotic thoughts: denies voices, denies suicidal preoccupation, plan or intent. Wants to return home and get treatment for substance abuse. Judgment: good. Insight: good. Orientation to person, place, time and situation. Recent and remote memory: intact Attention span and concentration: good Fund of knowledge: full Mood: euthymic Affect: congruent MEDICATIONS ON DISCHARGE: - citalopram (Celexa) 20 mg for depression/anxiety - trazodone for insomnia. -pt wanted Adderall upon discharge. Will leave this up to her outpatient provider as it did not seem appropriate for this admission. PLAN/FOLLOWUP ARRANGEMENTS: Obtain appt with [facility] for medication mgt and therapy. We will call her tomorrow with an appt for Dr. Rojas as his office is closed today. The amount of time spent in the coordination of care for this patient was approximately 40 minutes. Vital Signs/I&Os Vital Signs Date Time Temp Pulse Resp B/P Pulse Ox O2 Delivery O2 Flow Rate FiO2 12/18/16 08:38 108/68 12/18/16 06:40 97.5 84 16 12/13/16 21:15 100 Room Air Laboratory Data Microbiology Microbiology 12/14/16 Blood Culture - Preliminary, Resulted No Growth after 72 hours. All specime... 12/14/16 Blood Culture - Preliminary, Resulted No Growth after 72 hours. All specime... 12/14/16 Urine Culture - Final, Complete Medications Scheduled PRN Citalopram Hydrobromide (Citalopram Hydrobromide) 20 Mg Tab #7 20 MG PO DAILY PRN PRN q am Trazodone HCl (Trazodone HCl) 100 Mg Tab #7 100 MG PO QHSP PRN PRN INSOMNIA Allergies Coded Allergies: No Known Drug Allergy (Unverified Allergy, Unknown, 11/29/12) Tita Esparza Dec 18, 2016 10:10
[2016-12-18 11:25] VITALS: BP 122/80
[2016-12-18 14:48] VITALS: BP 117/67
[2016-12-18 15:00] VITALS: BP 117/67
== END 2016-12-18 15:30 | disposition home or self-care (01) | DRG 754 ==
LOC: M ED 17:24 → M ED INP 18:33 → M PSY 21:20
PROVIDERS: ADMIT Psychiatry & Neurology Child & Adolescent Psychiatry; ATTEND Psychiatry & Neurology Child & Adolescent Psychiatry
DX: F32.9 Major depressive disorder, single episode, unspecified (principal); F11.20 Opioid dependence, uncomplicated; R45.851 Suicidal ideations; F13.20 Sedative, hypnotic or anxiolytic dependence, uncomplicated; F17.210 Nicotine dependence, cigarettes, uncomplicated; F41.0 Panic disorder [episodic paroxysmal anxiety]; Z79.899 Other long term (current) drug therapy; Z91.5 Personal history of self-harm; Z80.3 Family history of malignant neoplasm of breast

== ENCOUNTER → 2016-12-22 | Outpatient (CLI) | payer MEDICAID ==
[~2016-12-22] MED LIST changes: +CITA20TA4 PO; +TRAZ100T4 PO
== END ==
LOC: M OUTALCOH 12:38
PROVIDERS: ATTEND Psychiatry & Neurology Psychiatry
DX: Z13.9 Encounter for screening, unspecified (principal); F11.20 Opioid dependence, uncomplicated; F17.200 Nicotine dependence, unspecified, uncomplicated

== ENCOUNTER 2017-01-01 15:00 | Outpatient (RCR) | payer MEDICAID | END 2017-01-24 | LOC: M OUTALCOH 15:00 | PROVIDERS: ATTEND Psychiatry & Neurology Psychiatry | DX: F11.20 Opioid dependence, uncomplicated (principal); F17.200 Nicotine dependence, unspecified, uncomplicated ==

== ENCOUNTER → 2017-02-08 | Outpatient (CLI) | payer MEDICAID | LOC: M OUTALCOH 14:33 | PROVIDERS: ATTEND Psychiatry & Neurology Psychiatry | DX: Z13.9 Encounter for screening, unspecified (principal); F11.20 Opioid dependence, uncomplicated ==

== ENCOUNTER 2017-02-22 14:00 | Outpatient (RCR) | payer MEDICAID ==
[~2017-02-22 14:00] MED LIST changes: +TRAZ-136 PO; -TRAZ100T4 PO
== END 2017-02-23 ==
LOC: M OUTALCOH 14:00
PROVIDERS: ATTEND Psychiatry & Neurology Psychiatry
DX: F11.20 Opioid dependence, uncomplicated (principal); F17.200 Nicotine dependence, unspecified, uncomplicated; F12.20 Cannabis dependence, uncomplicated

== ENCOUNTER → 2017-07-16 | Outpatient (REF) | payer OTHER | LOC: M SFHCADAM 15:32 | PROVIDERS: ATTEND Family Medicine | DX: R30.0 Dysuria (principal) ==

== ENCOUNTER → 2017-08-01 | Outpatient (CLI) | payer OTHER ==
[2017-08-01 15:17] LABS: MEAN CORPUSCULAR HEMOGLOBIN 30.7 pg (27.0-33.0); MEAN CORPUSCULAR HGB CONC 34.7 g/dl (32.0-36.5); MEAN CORPUSCULAR VOLUME 88.6 fl (80.0-96.0); PLATELET COUNT, AUTOMATED 403 10^3/uL (150-450); RED CELL DISTRIBUTION WIDTH 11.4 % (11.5-14.5)
[2017-08-01 15:40] LABS: ALBUMIN 4.7 GM/DL (3.2-5.2); ALBUMIN/GLOBULIN RATIO 1.42 (1.00-1.93); ALKALINE PHOSPHATASE 82 U/L (45-117); ALT/SGPT 18 U/L (12-78); ANION GAP 8 MEQ/L (8-16); AST/SGOT 13 U/L (7-37); BILIRUBIN,TOTAL 0.5 MG/DL (0.2-1.0); BLOOD UREA NITROGEN 11 MG/DL (7-18); CALCIUM LEVEL 9.3 MG/DL (8.5-10.1); CARBON DIOXIDE LEVEL 29 MEQ/L (21-32); CHLORIDE LEVEL 100 MEQ/L (98-107); CREATININE FOR GFR 0.94 MG/DL (0.55-1.02); GLOMERULAR FILTRATION RATE > 60.0 (>60); GLUCOSE, FASTING 67 MG/DL (70-105); SODIUM LEVEL 137 MEQ/L (136-145)
--- NOTE | 2017-08-01 18:16 | ECGEPIP ---
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 Incomplete RBBB. Within normal limits for age Electronically Signed On 08-01-2017 18:16:23 EST by Ronni Wright
== END ==
LOC: M LAB 14:24
PROVIDERS: ATTEND Family Medicine
DX: F11.20 Opioid dependence, uncomplicated (principal)

== ENCOUNTER → 2018-08-23 | Outpatient (CLI) | payer OTHER, SELFPAY ==
[~2018-08-23] MED LIST changes: -TRAZ-136 PO; +TRAZ-163 PO
[2018-08-23 18:10] LABS: HEMATOCRIT 41.6 % (36.0-47.0); HEMOGLOBIN 14.4 g/dl (12.0-15.5); MEAN CORPUSCULAR HGB CONC 34.6 g/dl (32.0-36.5); MEAN CORPUSCULAR VOLUME 86.7 fl (80.0-96.0); PLATELET COUNT, AUTOMATED 383 10^3/uL (150-450); WHITE BLOOD COUNT 6.7 10^3/uL (4.0-10.0)
[2018-08-23 18:28] LABS: ALBUMIN 4.1 GM/DL (3.2-5.2); ALT/SGPT 20 U/L (12-78); BILIRUBIN,TOTAL 0.4 MG/DL (0.2-1.0); BLOOD UREA NITROGEN 15 MG/DL (7-18); CALCIUM LEVEL 8.8 MG/DL (8.5-10.1); CARBON DIOXIDE LEVEL 28 MEQ/L (21-32); CHLORIDE LEVEL 104 MEQ/L (98-107); CREATININE FOR GFR 0.93 MG/DL (0.55-1.30); GLOMERULAR FILTRATION RATE > 60.0 (>60); GLUCOSE, FASTING 62 MG/DL (70-100); SODIUM LEVEL 138 MEQ/L (136-145); TOTAL PROTEIN 7.1 GM/DL (6.4-8.2)
[2018-08-23 20:44] LABS: HCG, SERUM QUALITATIVE NEGATIVE (NEGATIVE)
[2018-08-23 21:06] LABS: CHLAMYDIA DNA AMPLIFICATION NEGATIVE (NEGATIVE); GC DNA AMPLIFICATION NEGATIVE (NEGATIVE)
--- NOTE | 2018-08-24 07:18 | ECGEPIP ---
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
[2018-08-26 11:27] LABS: HEPATITIS B SURFACE ANTIGEN NEGATIVE (NEGATIVE)
[2018-08-26 11:56] LABS: HEPATITIS C VIRUS ABY INDEX 0.1 INDEX (<0.8); HIV 1&2 SCREEN CENTAUR NEGATIVE (NEGATIVE)
== END ==
LOC: M LAB 16:22
PROVIDERS: ATTEND Family Medicine
DX: F11.20 Opioid dependence, uncomplicated (principal)

== ENCOUNTER → 2019-09-09 | Outpatient (CLI) | payer OTHER ==
[~2019-09-09] MED LIST changes: -CITA20TA4 PO; +CITA20TA6 PO; -TRAZ-163 PO; +TRAZ-257 PO
--- NOTE | 2019-09-10 05:08 | REP ---
Clinical: IUD evaluation . Technique: Transvaginal examination for better evaluation of the endometrium and adnexa with color Doppler evaluation of the ovaries. Findings: Bladder is collapsed. Normal anteverted uterus measures 8.4 x 3.8 x 5.1 centimeters. The endometrial complex measures 10.2 mm thickness. No discrete uterine or endometrial abnormalities are appreciated. IUD identified in central satisfactory position. Bilateral ovaries are normal in appearance and vascularity without evidence for torsion. Right ovary measures 2.6 x 2.3 x 2.1 cm ; R I = 0.54 . Left ovary measures 3.2 x 1.8 x 1.2 cm ; R I = 0.63 . 1.7 cm complex right ovarian cyst likely physiologic. No pelvic fluid or adnexal mass lesion . Impression: 1. Normal uterus with IUD in satisfactory central position. 2. 1.7 cm complex right ovarian cyst likely physiologic. Electronically Signed by Kenny Aldridge MD 09/10/2019 04:59 A
== END ==
LOC: M RAD 08:09
PROVIDERS: ATTEND Nurse Practitioner Family
DX: Z30.431 Encounter for routine checking of intrauterine contraceptive device (principal)

== ENCOUNTER → 2019-09-26 | Outpatient (CLI) | payer OTHER ==
[2019-09-26 11:07] LABS: HEMATOCRIT 42.2 % (36.0-47.0); HEMOGLOBIN 13.7 g/dl (12.0-15.5); MEAN CORPUSCULAR HEMOGLOBIN 29.4 pg (27.0-33.0); MEAN CORPUSCULAR HGB CONC 32.5 g/dl (32.0-36.5); MEAN CORPUSCULAR VOLUME 90.6 fl (80.0-96.0); PLATELET COUNT, AUTOMATED 373 10^3/uL (150-450); RED BLOOD COUNT 4.66 10^6/uL (4.00-5.40); WHITE BLOOD COUNT 6.7 10^3/uL (4.0-10.0)
[2019-09-26 11:36] LABS: ALBUMIN 4.3 GM/DL (3.2-5.2); ALT/SGPT 18 U/L (12-78); BILIRUBIN,TOTAL 0.5 MG/DL (0.2-1.0); BLOOD UREA NITROGEN 8 MG/DL (7-18); CALCIUM LEVEL 9.2 MG/DL (8.5-10.1); CARBON DIOXIDE LEVEL 29 MEQ/L (21-32); CHLORIDE LEVEL 107 MEQ/L (98-107); CREATININE FOR GFR 0.76 MG/DL (0.55-1.30); GLOMERULAR FILTRATION RATE > 60.0 (>60); GLUCOSE, FASTING 72 MG/DL (70-100); POTASSIUM SERUM 3.9 MEQ/L (3.5-5.1); SODIUM LEVEL 140 MEQ/L (136-145); TOTAL PROTEIN 7.3 GM/DL (6.4-8.2)
[2019-09-26 11:42] LABS: HCG, SERUM QUALITATIVE NEGATIVE (NEGATIVE)
[2019-09-26 11:56] LABS: HEPATITIS B SURFACE ANTIGEN NEGATIVE (NEGATIVE)
[2019-09-26 12:22] LABS: CHLAMYDIA DNA AMPLIFICATION NEGATIVE (NEGATIVE); GC DNA AMPLIFICATION NEGATIVE (NEGATIVE)
[2019-09-26 12:24] LABS: HEPATITIS C VIRUS ABY INDEX < 0.0 INDEX (<0.8); HIV 1&2 SCREEN CENTAUR NEGATIVE (NEGATIVE)
== END ==
LOC: M LAB 09:12
PROVIDERS: ATTEND Family Medicine
DX: F11.21 Opioid dependence, in remission (principal)

== ENCOUNTER → 2020-04-21 | Outpatient (CLI) | payer OTHER ==
[2020-04-21 11:38] LABS: HEMATOCRIT 43.8 % (36.0-47.0); HEMOGLOBIN 14.8 g/dl (12.0-15.5); MEAN CORPUSCULAR HEMOGLOBIN 29.8 pg (27.0-33.0); MEAN CORPUSCULAR HGB CONC 33.8 g/dl (32.0-36.5); MEAN CORPUSCULAR VOLUME 88.3 fl (80.0-96.0); PLATELET COUNT, AUTOMATED 313 10^3/uL (150-450); RED BLOOD COUNT 4.96 10^6/uL (4.00-5.40); WHITE BLOOD COUNT 5.7 10^3/uL (4.0-10.0)
[2020-04-21 12:11] LABS: ALBUMIN 4.1 GM/DL (3.2-5.2); ALT/SGPT 21 U/L (12-78); BILIRUBIN,TOTAL 0.4 MG/DL (0.2-1.0); BLOOD UREA NITROGEN 10 MG/DL (7-18); CALCIUM LEVEL 9.2 MG/DL (8.5-10.1); CARBON DIOXIDE LEVEL 31 MEQ/L (21-32); CHLORIDE LEVEL 104 MEQ/L (98-107); CREATININE FOR GFR 0.86 MG/DL (0.55-1.30); GLOMERULAR FILTRATION RATE > 60.0 (>60); GLUCOSE, FASTING 81 MG/DL (70-100); SODIUM LEVEL 139 MEQ/L (136-145); TOTAL PROTEIN 7.2 GM/DL (6.4-8.2)
[2020-04-21 12:28] LABS: HCG, SERUM QUALITATIVE NEGATIVE (NEGATIVE)
[2020-04-21 12:30] LABS: HEPATITIS B SURFACE ANTIGEN NEGATIVE (NEGATIVE)
[2020-04-21 12:57] LABS: HEPATITIS C VIRUS ABY INDEX 0.2 INDEX (<0.8); HIV 1&2 SCREEN CENTAUR NEGATIVE (NEGATIVE)
[2020-04-21 13:54] LABS: CHLAMYDIA DNA AMPLIFICATION NEGATIVE (NEGATIVE); GC DNA AMPLIFICATION NEGATIVE (NEGATIVE)
--- NOTE | 2020-05-18 15:26 | ECGEPIP ---
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
== END ==
LOC: M EKG 10:25
PROVIDERS: ATTEND Family Medicine
DX: F11.20 Opioid dependence, uncomplicated (principal)

== ENCOUNTER 2020-12-06 17:06 | Emergency (ER) | payer OTHER ==
[~2020-12-06] VITALS: Ht 162.6 cm; Wt 68.9 kg
[2020-12-06 17:07] VITALS: BP 133/72
[2020-12-06] MEDS ORDERED: METH10CO PO (17:17)
[2020-12-06] MEDS ORDERED: AMPH1TAB2 (17:17)
== END 2020-12-06 19:03 | disposition left against medical advice (07) ==
LOC: M ED 17:06
DX: Z53.21 Procedure and treatment not carried out due to patient leaving prior to being seen by health care provider (principal)

== ENCOUNTER 2021-03-18 19:00 | Inpatient (IN) | payer MEDICAID, OTHER ==
[~2021-03-18] VITALS: Ht 162.6 cm; Wt 58.9 kg
[~2021-03-18 19:00] MED LIST changes: +AMPH1TAB2 PO; +METH10CO PO
[2021-03-18 22:15] LABS: AMPHETAMINES LEVEL URINE POSITIVE (NEGATIVE); BARBITURATES URINE NEGATIVE (NEGATIVE); BENZODIAZEPINES URINE NEGATIVE (NEGATIVE); CANNABINOIDS URINE NEGATIVE (NEGATIVE); COCAINE METABOLITE URINE POSITIVE (NEGATIVE); METHADONE URINE POSITIVE (NEGATIVE); OPIATES URINE POSITIVE (NEGATIVE); PHENCYCLIDINE URINE NEGATIVE (NEGATIVE)
[2021-03-18 22:45] LABS: HEMATOCRIT 35.9 % (36.0-47.0); MEAN CORPUSCULAR HEMOGLOBIN 28.4 pg (27.0-33.0); MEAN CORPUSCULAR HGB CONC 33.4 g/dl (32.0-36.5); MEAN CORPUSCULAR VOLUME 84.9 fl (80.0-96.0); PLATELET COUNT, AUTOMATED 332 10^3/uL (150-450); RED BLOOD COUNT 4.23 10^6/uL (4.00-5.40); WHITE BLOOD COUNT 6.5 10^3/uL (4.0-10.0)
[2021-03-18 23:17] LABS: ALT/SGPT 19 U/L (12-78); BLOOD UREA NITROGEN 12 MG/DL (7-18); CALCIUM LEVEL 8.6 MG/DL (8.5-10.1); CARBON DIOXIDE LEVEL 28 MEQ/L (21-32); CHLORIDE LEVEL 108 MEQ/L (98-107); CREATININE FOR GFR 0.91 MG/DL (0.55-1.30); GLOMERULAR FILTRATION RATE > 60.0 (>60); GLUCOSE, FASTING 115 MG/DL (70-100); HCG, SERUM QUALITATIVE NEGATIVE (NEGATIVE); POTASSIUM SERUM 3.7 MEQ/L (3.5-5.1); SODIUM LEVEL 142 MEQ/L (136-145)
[2021-03-18 23:18] LABS: ACETAMINOPHEN LEVEL < 2.0 UG/ML (10.0-30.0); ALBUMIN 3.6 GM/DL (3.2-5.2); BILIRUBIN,DIRECT 0.1 MG/DL (0.0-0.2); BILIRUBIN,TOTAL 0.4 MG/DL (0.2-1.0); ETHYL ALCOHOL (ETHANOL) < 0.003 % (0.000-0.010); SALICYLATE LEVEL < 1.7 MG/DL (5.0-30.0); THYROID STIMULATING HORMONE 0.869 uIU/ML (0.358-3.740); TOTAL PROTEIN 6.8 GM/DL (6.4-8.2)
[2021-03-19] MEDS ORDERED: MOM 30ML SUSPENSION UDC PO PRN (08:05)
[2021-03-19] MEDS ORDERED: ACETAMINOPHEN TAB 650MG DOSE (2X325MG) PO PRN (08:05)
[2021-03-19] MEDS ORDERED: MAALOX 30 ML SUSP *UDC PO PRN (08:05)
[2021-03-19] MEDS: NICOTINE 21MG/24HR 1 EA TRANSDERMAL TD SCH (09:00)
[2021-03-19 09:25] LABS: RSV AMPLIFICATION NEGATIVE (NEGATIVE)
[2021-03-19] MEDS ORDERED: NICO4GUM41 PO (10:12)
[2021-03-19] MEDS ORDERED: HYDR50CA2 PO (10:12)
[2021-03-19] MEDS: ADDERALL 5 MG TAB PO SCH ×2 (10:16→14:00)
[2021-03-19 13:38] VITALS: BP 92/62
[2021-03-19 16:35] VITALS: BP 92/62
[2021-03-19] MEDS: METHADONE 5 MG TAB (S0109) PO SCH ×2 (17:03→21:37)
--- NOTE | 2021-03-19 17:12 | MHHPE ---
[facility] HISTORY AND PHYSICAL DATE OF ADMISSION: 03/19/2021 This is a video assessment partly and she is seen in the presence of staff. She is in the inpatient psychiatry unit, I am at home. I am obtaining some of the history and she will be seen soon after this. The assessment will then continue in the inpatient unit. VITAL SIGNS: Blood pressure 92/62, pulse 90, temperature 103. It should be noted, the temperature taken a couple of hours was 97.3 and a couple of hours ago was 97.8, but only a little later, half an hour or so, at 1338 per the chart, it was 103. CHIEF COMPLAINT: Feels depressed. SUBJECTIVE: She is 30 years old. She is single, has a boyfriend. They have been together for a couple of years. She lives on her own in an apartment owned by her mother, but more recently has been staying at her boyfriend's place. Says does that in the summer when she picks asparagus. The boyfriend is supportive, as is his mother. Patient has a history of substance misuse, attends [facility] outpatient, sees them for mental health as well, and at the addictions clinic there is prescribed methadone 64 mg daily. Has been going there for a little while. Also prescribed Adderall 15 mg twice a day. The Adderall is prescribed by the mental health clinic at [facility]. At the emergency room (ER) apparently, she was given hydroxyzine 50 mg. Apparently, she takes it at bedtime. She says she was free of drugs for about three years, relapsed about three weeks ago, has been grieving for her best friend, who apparently of an overdose about a year ago and this is further exacerbated by patient losing a pet a few days ago. Has been feeling increasingly distressed. Has been using the methadone, even after she had relapsed. Says has been using the methadone fairly regularly, but does not think that she has used it for the last couple of days, possibly. Gets it at [facility]. She says has been using heroin intravenously and, more recently, within the last week or so, possibly a little longer, starting using cocaine as well. Says has never used it before, again intravenously, and has used benzodiazepines, mostly Xanax. She is not quite sure of the amounts. Says may have used in the last few days. It should be noted urine toxicology is positive for opiates, methadone, amphetamines and cocaine, but not for benzodiazepines or cannabinoids. Says has been thinking of harming herself, has had thoughts but no firm plans. Was increasingly concerned that she might end up harming herself if she were not to get help and she then decided to come to the hospital. Says was brought here by boyfriend's mother. Says had had withdrawal symptoms in the past with diarrhea, nausea and occasional vomiting when coming off drugs. Denies any history of auditory or visual hallucinations when doing that, though an assessment from 2016, when she was last admitted here, indicates that she had experienced some perceptual disturbances. Says at times has felt depressed, even when not using drugs. Has felt anxious as well, though unclear if she has ever met criteria for major depressive episode. PAST PSYCHIATRIC HISTORY: As indicated above. Has had one inpatient hospitalization here in 2016 and one in 2011. Attends outpatient care at [facility] for substance abuse as well as mental health. FAMILY PSCHIATRIC HISTORY: Mother has difficulties with alcohol. An uncle on her father's side does as well. MEDICAL HISTORY: As far as I am aware, she does not have any acute or chronic medical illnesses. SOCIAL HISTORY: Please refer to previous summaries. Says has family in the area, but is not very close to them. Lives in her mother's apartment and her mother owns it. They have a been a bit distant recently. She says she has been with her boyfriend for the last couple of years. He has been supportive, as has his mother. No history of head injuries. MENTAL STATUS EXAMINATION: She is neat. She is cooperative. There is no agitation. No psychomotor retardation. Appears well-nourished. She is coherent. Affect reactive, broad. No formal thought disorder. Has thoughts of harming herself, but vague on this. No firm plans. No homicidal ideas or intents. No evidence of any psychosis. No fluctuation of consciousness. Can maintain and shift attention adequately. She is alert and oriented to time, place and person. Can recall one out of three objects after five minutes with prompting. Intellect average. Judgment and insight compromised. ASSESSMENT: 1. Unspecified anxiety disorder. 2. Unspecified depressive disorder. 3. Opiate use disorder. 4. Cocaine use disorder. 5. Grief. 6. Recent relapse. Has been anxious and depressed, though unclear if she has met criteria for comorbid depressive or anxiety disorders, such as major depressive disorder. It is possible that her recent drug use, relapse, have also contributed to the anxiety, but one impacting the other. The difficulties with her using drugs currently exacerbate matters. Recent fever needs to be reassessed, including the context of withdrawal. Withdrawal does not usually result in fevers. Other infections may need to be taken into consideration. PLAN: She is admitted to inpatient psychiatry unit. We will look at obtaining collateral information. She is placed on relevant precautions, including withdrawal precautions and we will monitor for that. We will resume methadone. She takes 64 mg daily. We will resume that, but may be preferable to confirm dose, though she will require some methadone for withdrawal and we will titrate accordingly. I would not suggest that she resume Adderall, given the above concerns and misuse of drugs. We will hold off on prescribing an antidepressant. Was prescribed Celexa several years ago. It is preferable reassessing the need for this. She will receive a medicine consultation, if indicated. She will be involved in individual, group and milieu therapy and we will discharge her with followup once she is stable. I anticipate a 5-7 day stay. Further recommendations will be made depending on the clinical picture. I will be going in to the hospital to see her a little later on today for the completion of the evaluation. This assessment has taken 30 minutes.
[2021-03-19] MEDS ORDERED: hydrOXYzine 50 MG TAB PO PRN (20:15)
--- NOTE | 2021-03-19 21:25 | ECGEPIP ---
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
[2021-03-19] MEDS: traZODone 50 MG TAB PO PRN (21:37)
[2021-03-20 06:20] VITALS: BP 94/50
[2021-03-20] MEDS: METHADONE 5 MG TAB (S0109) PO SCH ×2 (08:11→21:20)
[2021-03-20] MEDS: NICOTINE 21MG/24HR 1 EA TRANSDERMAL TD SCH (08:12)
[2021-03-20] MEDS ORDERED: CALCIUM CARBONATE 500 MG CHEW U/D PO ONE (12:00)
[2021-03-20] MEDS ORDERED: METHADONE 10 MG TAB (S0109) PO ONE ×2 (12:00→18:30)
[2021-03-20] MEDS ORDERED: ONDANSETRON 4 MG ORAL DISINTEGRATING TAB PO ONE ×2 (12:15→18:30)
[2021-03-20 15:44] VITALS: BP 102/54
[2021-03-21 06:38] VITALS: BP 90/52
--- NOTE | 2021-03-21 07:47 | MHIPN ---
[facility] PROGRESS NOTE DATE: 03/20/2021 VITAL SIGNS: Blood pressure 94/50, pulse 70, temperature 98. CHIEF COMPLAINT: Feels anxious. SUBJECTIVE: Seen for followup, she is seen in the presence of staff, this is a video assessment, she is at the inpatient unit, I am at home. She says she feels anxious and restless, has had nausea, says has almost thrown up, has been sweating, has been feeling cold at times, has had erratic sleep, no vomiting, mild diarrhea. Has been in touch with her mother this morning, says that went better than expected. MENTAL STATUS EXAMINATION: Fair hygiene, she is cooperative, mildly fidgety, coherent, appears mildly anxious, no agitation, no psychomotor retardation, denies any suicidal thoughts or intents, no homicidal ideas or intents, no evidence of any psychosis, cognition grossly intact, judgment good, insight is fair. ASSESSMENT: Unspecified anxiety disorder. Unspecified depressive disorder. Opioid use disorder. Cocaine use disorder. Is withdrawing from heroin most likely, unlikely these are withdrawal symptoms from the cocaine, possibly benzodiazepines, but toxicology was negative for benzodiazepines when she came in. She has received methadone, currently at 30 mg a day. PLAN: I will add methadone 15 mg as a one-time dose for now, and continue with the rest of the regimen, methadone 15 mg twice a day, so therefore today she is expected to get a total of 45 mg of methadone. Will continue the rest of her symptomatic treatment, and maintain precautions, encourage participate in activities as tolerated, will encourage fluids as well. Will hold off on starting an antidepressant, as it is too soon to consider doing that, in my opinion. Further recommendations will be made depending on the clinical picture. The patient will be seen by the assigned clinicians tomorrow.
[2021-03-21] MEDS: NICOTINE 21MG/24HR 1 EA TRANSDERMAL TD SCH (08:30)
[2021-03-21] MEDS: METHADONE 5 MG TAB (S0109) PO SCH ×2 (08:31→20:03)
--- NOTE | 2021-03-21 09:58 | MHIPNPDOC ---
[facility] Progress Note Progress Note DATE OF SERVICE: 03/21/21 Patient is reporting that she had a good night sleep and is feeling much better today. She denies any pain or discomfort and does not feel that she has any ac pascual withdrawal symptoms. She is in no acute distress smiling appropriately and denies any suicidal thoughts. She easily admits that she has relapsed with heroin but denies using any methamphetamine and minimizing her use of Xanax. She states that she is feeling safer and is anxious to get back to her outpatient treatment and is going to decide where she will go to stay after dis charge. She denies any need for inpatient drug rehabilitation service and denies any lethality issues and claims that she has many supportive people in her life including her family. We will continue with the current medicine and supportive therapy and develop discharge plan. HISTORY:. VITAL SIGNS: See below. NEW TEST RESULTS:. CURRENT MEDICATIONS: See below. MENTAL STATUS EXAMINATION: Patient is a 30-year old female, who is in no acute distress. Speech: Is rational and coherent. Language skills are good. Thought processes including: Relevant. Thought content: Denies any suicidal thoughts. Abstract reasoning, and computation: Fair. Description of associations: Organized. Description of abnormal or psychotic thoughts: Denies any psychotic symptoms. Judgment: Fair]. Insight: Fair. Orientation: Well oriented. Recent and remote memory: Does not appear impaired. Attention span and concentration:. Language:. Fund of knowledge:. Mood: Not feeling as depressed. Affect: Animated and appropriate. DIAGNOSES: 1.. Depressive disorder NOS 2.. Polysubstance abuse 3.. ASSESSMENT: Denies any suicidal thoughts and denies any acute withdrawal symptoms MANAGEMENT PLAN: Supportive therapy and lethality evaluation. TIME SPENT: 20 minutes. Vital Signs Vital Signs Date Time Temp Pulse Resp B/P (MAP) Pulse Ox O2 Delivery O2 Flow Rate FiO2 03/21/21 06:38 97.0 79 16 90/52 (65) 99 Room Air Current Medications Current Medications Medications (Trade) Dose Ordered Sig/Yaima Route PRN Reason Start Time Stop Time Status Last Admin Dose Admin Acetaminophen (Tylenol Tab) 650 mg Q6HP PRN PO HEADACHE or MILD DISCOMFORT 03/19/21 08:05 Al Hydrox/Mg Hydrox/Simethicone (Mylanta) 30 ml Q4HP PRN PO HEARTBURN/INDIGESTION 03/19/21 08:05 03/20/21 18:02 Amphetamine/ Dextroamphetamine (Adderall) 15 mg BID@0800,1400 PO 03/19/21 08:00 03/19/21 20:04 DC 03/19/21 10:16 Home Med (Med Rec Complete!) ASDIRECTED XX 03/19/21 01:50 03/19/21 01:54 DC Home Med (Med Rec Complete!) ASDIRECTED XX 03/21/21 08:35 03/21/21 08:32 DC Hydroxyzine HCl (Atarax) 50 mg BID PRN PO ANXIETY 03/19/21 20:15 03/23/21 20:15 03/20/21 11:09 Magnesium Hydroxide (Milk Of Magnesia) 30 ml DAILYPRN PRN PO CONSTIPATION 03/19/21 08:05 Methadone HCl (Dolophine) 15 mg BID PO 03/19/21 16:30 03/21/21 08:31 Nicotine (Nicoderm Cq 21mg) 1 patch DAILY TD 03/19/21 09:00 Trazodone HCl (Desyrel) 50 mg QHSP PRN PO INSOMNIA 03/19/21 08:05 03/19/21 21:37 Allergies Coded Allergies: No Known Allergies (Unverified , 03/18/21) DEEPTI BROCK M.D. Mar 21, 2021 09:58
--- NOTE | 2021-03-21 10:14 | CR ---
CONSULTATION DATE: 03/20/2021 REQUESTING PHYSICIAN: Dr. Henriquez. REASON FOR CONSULTATION: Medical evaluation. HISTORY OF PRESENT ILLNESS: Yolis is a 30-year-old woman with attention deficit disorder as well as narcotic abuse currently on methadone therapy. Patient had relapsed a few weeks back when she started using cocaine, heroin and benzodiazepines. She states that her triggers were that her friend a year ago from an overdose and she recently lost her ferret who several days ago. Patient has had increased depressed feeling and thoughts of hurting herself and was admitted to the inpatient psychiatry [place]. ALLERGIES: No known drug allergies. MEDICATIONS: - Atarax - nicotine - Mylanta - Milk of Magnesia - Tylenol - Deseril PAST MEDICAL HISTORY: Notable for: 1. Polysubstance abuse. 2. Attention deficit hyperactivity disorder. SURGICAL HISTORY: Notable for wisdom teeth removal. SOCIAL HISTORY: Patient has been working on an tribr. She smokes a few cigarettes, does not use any alcohol. She does use illegal substances. FAMILY HISTORY: Notable for substance abuse. REVIEW OF SYSTEMS: Also reviewed. Otherwise negative for acute medical issues. PHYSICAL EXAMINATION: VITAL SIGNS: The patient's temperature is 98 degrees Fahrenheit, pulse is 78 and regular, respirations 16, blood pressure is 94/60, oxygen saturation is 96% on room air. GENERAL: Yolis is a 30-year-old female who appears to be well-developed and well-nourished. SKIN: Intact and warm to touch. She has no visible rash. She has track robert on her right arm consistent with her intravenous drug use. HEAD: Atraumatic. Her pupils are equal, round, reactive to light and accommodation. No scleral icterus. Tympanic membranes visualized bilaterally. No visible erythema or opacification of her eardrums are noted. Oropharynx is clear. No visible thrush. NECK: Supple. No palpable lymphadenopathy. No thyromegaly. Trachea is midline. No audible stridor. LUNGS: Lung sounds are appreciated bilaterally without rales or rhonchi. HEART: S1, S2, without murmurs or gallops. ABDOMEN: Soft, nontender, nondistended. EXTREMITIES: Without clubbing, cyanosis or edema. NEUROLOGIC: Cranial nerves II-XII grossly intact. Gait is normal. PSYCHIATRIC: Patient appears depressed. She is otherwise alert and oriented times four. PERTINENT IMAGING STUDIES: None. LABORATORY DATA: Salicylate level less than 1.7. Acetaminophen level less than 2. Urine drug screen is positive for opiates, methadone, amphetamines and cocaine. Ethyl alcohol is less than 0.03. Sodium 142, potassium 3.7, chloride 108, bicarbonate 28, BUN 12, creatinine 0.91, calcium 8.6. Total bilirubin 0.4, AST 10, ALT 19, alkaline phosphatase 64, albumin 3.6. TSH 0.869. Urine HCG was negative. White blood cell count 6.5, hemoglobin 12, hematocrit 35.9, platelet count 333,000. IMPRESSION: 1. Acute depression with suicidal ideation. 2. Polysubstance abuse. 3. History of attention deficit hyperactivity disorder (ADHD). 4. Normal female physical examination. RECOMMENDATIONS: Agree with holding Adderall. Continue methadone. Patient is medically stable to undergo inpatient psychiatric treatment. We will sign off at this time. Please call me back with any questions, if necessary. JIMMY
[2021-03-21 19:07] VITALS: BP 88/52
[2021-03-21] MEDS: traZODone 50 MG TAB PO PRN (22:10)
[2021-03-22 06:00] VITALS: BP 92/58
[2021-03-22] MEDS: METHADONE 5 MG TAB (S0109) PO SCH (08:25)
[2021-03-22] MEDS: NICOTINE 21MG/24HR 1 EA TRANSDERMAL TD SCH (08:26)
--- NOTE | 2021-03-22 09:14 | MHDSPDOC ---
[facility] Discharge Summary Discharge Summary DATE OF ADMISSION: Mar 19, 2021 at 08:03 DATE OF DISCHARGE: March 22, 2021 DISCHARGE DIAGNOSES: 1.. Depressive disorder NOS 2.. Polysubstance abuse REASON FOR ADMISSION: 30-year-old female with a long history of opiate dependence who is an active methadone maintenance program. Patient was admitted admitted due to increasing depression and vague suicidal thoughts and relapsed with use of cocaine amphetamine and heroin. Patient reported increasing depression after a recent of a close friend from 1 accidental overdose. She tested positive for methadone opiate cocaine and amphetamine on admission tox screen. CONSULTANTS INVOLVED: TREATMENT AND PROGRESS ON THE UNIT : Patient was seen for supportive therapy and lethality evaluation. She was restarted on methadone 15 mg twice a day and Atarax and Zyprexa as needed basis. She did not experience any acute withdrawal symptoms and maintained good control and denies any more suicidal thoughts. She is rather superficial and evasive but does not show any psychotic symptoms and is in no acute physical distress and continues to deny any suicidal thoughts plan or intent. She has her own apartment and is well linked with outpatient program and is anxious to return home to follow-up with her outpatient and methadone maintenance program.. HOSPITAL COURSE: Patient has cooperated with treatment maintained good control and did not experience any acute withdrawal symptoms and did not show any acting out behavior. She is in no acute distress does not appear to be suicidal and is willing to continue outpatient treatment DISCHARGE ASSESSMENT: Stable and not suicidal MENTAL STATUS EXAMINATION ON DISCHARGE: Patient is a 30-year old female, who is in good control and in no acute physical distress. Speech is rational and coherent. Language skills are good. Thought processes including: Relevant. Thought content: No suicidal thoughts and no psychotic symptoms. Abstract reasoning, and computation: Fair. Description of associations: Organized. Description of abnormal or psychotic thoughts: Denies any. Judgment: Fair. Insight: Fair. Orientation to well oriented. Recent and remote memory: Unimpaired. Attention span and concentration:. Language:. Fund of knowledge:. Mood: Denies any serious depressed mood. Affect: Animated and appropriate. MEDICATIONS ON DISCHARGE: -For. No prescription was given -For. Patient is to continue her methadone maintenance program -For. PLAN/FOLLOWUP ARRANGEMENTS: Arranged by the [employer] force planners. The amount of time spent in the coordination of care for this patient was appro ximately 35 minutes. ETOH/Disorder Med Rx ETOH/DRUG DISORDER RX: N/A Vital Signs/I&Os Vital Signs Date Time Temp Pulse Resp B/P (MAP) Pulse Ox O2 Delivery O2 Flow Rate FiO2 03/22/21 06:00 97.5 65 18 92/58 (69) 97 03/21/21 10:59 Room Air Medications Scheduled Hydroxyzine Pamoate (Hydroxyzine Pamoate) 50 Mg Capsule, 50 MG PO QHS, (Reported) Methadone HCl (Methadone HCl) 10 Mg/1 Ml Oral.conc, 64 MG PO DAILY for . , (Reported) VERIFIED WITH [facility]O Scheduled PRN Nicotine Polacrilex (Nicotine Gum) 4 Mg Gum, 4 MG PO QID PRN for SMOKING CESSATION, (Reported) Allergies Coded Allergies: No Known Allergies (Unverified , 03/18/21) DEEPTI BROCK M.D. Mar 22, 2021 09:13
--- NOTE | 2021-03-24 12:10 | MHHPE ---
[facility] HISTORY AND PHYSICAL DATE OF ADMISSION: 03/19/2021 ADDENDUM: I came in and I have seen her in the unit, [id number], and we discussed the course of events, the history, as well as recent events and mental status examination is reconfirmed. She feels less anxious and is feeling better than when I saw her a little earlier. Her temperature is down as well, at 97.9. She indicates she is on probation. sales and service officer is aware of her relapse. The assessment and recommendations are discussed again, and in view of her recent heroin use and possible irregular use of methadone, she is aware that the methadone will be used at 30 mg daily in divided doses to help with withdrawal and then we will look at maintenance. We will hold off on using an antidepressant, given previous concerns and it is preferable that further assessments are made and collateral information is obtained. Assessment, recommendations and plan are discussed with her. Further recommendations depending on the clinical picture.
== END 2021-03-22 11:31 | disposition home or self-care (01) | DRG 754 ==
LOC: M ED 19:00 → M ED INP 03-19 08:03 → M PSY 03-19 13:25
PROVIDERS: ADMIT Psychiatry & Neurology Psychiatry; ATTEND Psychiatry & Neurology Psychiatry
DX: F32.9 Major depressive disorder, single episode, unspecified (principal); R45.851 Suicidal ideations; F41.9 Anxiety disorder, unspecified; F11.13 Opioid abuse with withdrawal; F14.10 Cocaine abuse, uncomplicated; Z81.1 Family history of alcohol abuse and dependence; F17.210 Nicotine dependence, cigarettes, uncomplicated; Z63.4 Disappearance and death of family member

== ENCOUNTER 2021-05-11 11:33 | Emergency (ER) | payer MEDICAID, OTHER ==
[~2021-05-11] VITALS: Ht 162.6 cm; Wt 57.2 kg
[~2021-05-11 11:33] MED LIST changes: +HYDR50CA2 PO; +NICO4GUM41 PO
[2021-05-11] MEDS ORDERED: TRAZ-252 (11:47)
[2021-05-11 12:27] LABS: HEMATOCRIT 39.9 % (36.0-47.0); HEMOGLOBIN 13.4 g/dl (12.0-15.5); MEAN CORPUSCULAR HGB CONC 33.6 g/dl (32.0-36.5); MEAN CORPUSCULAR VOLUME 86.4 fl (80.0-96.0); PLATELET COUNT, AUTOMATED 299 10^3/uL (150-450); RED BLOOD COUNT 4.62 10^6/uL (4.00-5.40); WHITE BLOOD COUNT 9.8 10^3/uL (4.0-10.0)
[2021-05-11] MEDS ORDERED: LIDOCAINE 2% 5ML JELLY UROJET TOP ONE (12:45)
[2021-05-11 12:58] LABS: HCG, SERUM QUALITATIVE NEGATIVE (NEGATIVE)
[2021-05-11 13:05] LABS: ACETAMINOPHEN LEVEL < 2.0 UG/ML (10.0-30.0); ALBUMIN 4.2 GM/DL (3.2-5.2); ALT/SGPT 22 U/L (12-78); BILIRUBIN,DIRECT < 0.1 MG/DL (0.0-0.2); BILIRUBIN,TOTAL 0.5 MG/DL (0.2-1.0); BLOOD UREA NITROGEN 10 MG/DL (7-18); CALCIUM LEVEL 9.4 MG/DL (8.5-10.1); CARBON DIOXIDE LEVEL 28 MEQ/L (21-32); CHLORIDE LEVEL 105 MEQ/L (98-107); CREATININE FOR GFR 0.93 MG/DL (0.55-1.30); ETHYL ALCOHOL (ETHANOL) < 0.003 % (0.000-0.010); GLOMERULAR FILTRATION RATE > 60.0 (>60); GLUCOSE, FASTING 93 MG/DL (70-100); POTASSIUM SERUM 4.9 MEQ/L (3.5-5.1); SALICYLATE LEVEL < 1.7 MG/DL (5.0-30.0); SODIUM LEVEL 137 MEQ/L (136-145); TOTAL PROTEIN 7.9 GM/DL (6.4-8.2)
[2021-05-11 14:46] LABS: AMPHETAMINES LEVEL URINE NEGATIVE (NEGATIVE); BARBITURATES URINE NEGATIVE (NEGATIVE); BENZODIAZEPINES URINE POSITIVE (NEGATIVE); CANNABINOIDS URINE NEGATIVE (NEGATIVE); COCAINE METABOLITE URINE NEGATIVE (NEGATIVE); METHADONE URINE POSITIVE (NEGATIVE); OPIATES URINE NEGATIVE (NEGATIVE); PHENCYCLIDINE URINE NEGATIVE (NEGATIVE)
[2021-05-11 15:03] VITALS: BP 116/84
== END 2021-05-11 15:54 | disposition home or self-care (01) ==
LOC: EDBD 11:33 → M ED 11:33
DX: F19.120 Other psychoactive substance abuse with intoxication, uncomplicated (principal); F17.200 Nicotine dependence, unspecified, uncomplicated; F32.9 Major depressive disorder, single episode, unspecified; Z79.899 Other long term (current) drug therapy

== ENCOUNTER 2021-05-12 12:44 | Emergency (ER) | payer MEDICAID, OTHER ==
[~2021-05-12] VITALS: Ht 162.6 cm; Wt 58.3 kg
[~2021-05-12 12:44] MED LIST changes: +TRAZ-252
[2021-05-12 16:14] VITALS: BP 95/53
== END 2021-05-12 16:29 | disposition home or self-care (01) ==
LOC: M ED 12:44
DX: F11.10 Opioid abuse, uncomplicated (principal); F17.210 Nicotine dependence, cigarettes, uncomplicated

== ENCOUNTER → 2025-03-04 | Outpatient (CLI) | payer OTHER ==
[2025-03-04 16:23] LABS: PLATELET COUNT, AUTOMATED 394 10^3/uL (150-450)
[2025-03-04 16:51] LABS: ALT/SGPT 18 U/L (7.0-40); AST/SGOT 25 U/L (<34); CALCIUM LEVEL 8.9 MG/DL (8.5-10.1); CARBON DIOXIDE LEVEL 19 MMOL/L (20-31); CHLORIDE LEVEL 107 MMOL/L (98-107); CREATININE FOR GFR 0.84 MG/DL (0.55-1.30); GLOMERULAR FILTRATION RATE > 90.0 (>60); POTASSIUM SERUM 4.5 MMOL/L (3.5-5.1); SODIUM LEVEL 142 MMOL/L (136-145)
[2025-03-04 17:20] LABS: HEPATITIS C VIRUS ABY INDEX 0.10 INDEX (<0.8); HIV 1&2 SCREEN NEGATIVE (NEGATIVE)
[2025-03-04 17:49] LABS: HCG, SERUM QUALITATIVE NEGATIVE (NEGATIVE)
[2025-03-04 18:10] LABS: GC DNA AMPLIFICATION NEGATIVE (NEGATIVE)
== END ==
LOC: M LAB 13:53
PROVIDERS: ATTEND Family Medicine
DX: F11.20 Opioid dependence, uncomplicated (principal)